=== PATIENT | male | born 1970 | race Caucasian/White ===

== ENCOUNTER 2025-03-31 12:38 | Outpatient (CLI) | payer OTHER, SELFPAY ==
--- NOTE | 2025-03-31 13:00 | MR_ITS ---
[address] [address] Phone:?[phone] Fax:?[phone] Referring Physician Information: Cong Reed M.D. [id number] [id number] Phone:?[phone] Fax:?[phone] Patient:Jose L Griffiths D.O.B:?1970 Sex:?Male Phone:?[phone] [facility] MRN:?[id number] Exam Date:?03/31/2025 EXAM: MRI of the RIGHT SHOULDER without contrast CLINICAL: Right shoulder pain. COMPARISONS: X-rays dated 03/19/2025. TECHNICAL: Multiplanar multisequence MRI of the right shoulder was obtained. SEDATION: None. CONTRAST: None. FINDINGS: Rotator cuff: Supraspinatus/Infraspinatus: There is mild partial interstitial insertional tearing of the junction of the posterior distal supraspinatus and anterior distal infraspinatus tendons as seen on coronal series 5 image 12-13 with mild partial interstitial tearing involving the infraspinatus tendon proximal to the humeral attachment on coronal series 5 image 15-16. Mild tendinosis of the distal infraspinatus tendon. No significant fatty atrophy of the muscles. Teres minor: No tendinosis, tear or atrophy. Subscapularis: There is moderate tendinosis and mild partial interstitial tearing of the distal subscapularis tendon. No significant fatty atrophy of the muscle. Bursae: Subacromial-subdeltoid: No significant bursal fluid. Subcoracoid: No significant bursal fluid. Coracoacromial arch: Acromion morphology: Type II. No os acromiale. Acromiohumeral space: Within normal limits. Coracohumeral space: Within normal limits. Biceps tendon, long head: No tendinosis, tendon tear or displacement. Glenohumeral joint: No significant joint effusion. Articular cartilage: No discrete chondral defects identified as visualized. Capsule: No evidence of capsular thickening or injury. Labrum: Evaluation is limited without intra-articular contrast. Suspect mild fraying/tearing of the superior labrum posterior to the biceps anchor with apparent ill-defined fraying/tearing also seen to involve the inferior labrum. No perilabral cyst identified. Bones: No suspicious marrow signal alteration, fracture or dislocation. Acromioclavicular joint: Moderate changes of arthrosis. No AC joint injury/widening. IMPRESSION: 1. Mild partial interstitial insertional tearing of the junction of the posterior distal supraspinatus and anterior distal infraspinatus tendons with mild partial interstitial tearing also involving the infraspinatus tendon proximal to the humeral attachment. Mild tendinosis of the distal infraspinatus tendon. 2. Moderate tendinosis and mild thin linear partial interstitial tearing of the distal subscapularis tendon. 3. Evaluation of the labrum is limited. Suspect mild fraying/tearing of the superior labrum with apparent ill-defined fraying/tearing involving the inferior labrum as visualized. Consider follow-up with MR arthrography for further evaluation. 4. Moderate AC joint arthrosis. 5. Normal appearance of the long head biceps tendon. No evidence of fracture. JCZ Electronically signed on 04/01/2025 9:01:00 AM by Ellis Tenorio D.O.
== END 2025-03-31 12:39 | disposition home or self-care (01) ==
LOC: MRI 12:40
PROVIDERS: Visit Provider Orthopaedic Surgery Sports Medicine
DX: M25.511 Pain in right shoulder (principal); M75.101 Unspecified rotator cuff tear or rupture of right shoulder, not specified as traumatic; S43.431A Superior glenoid labrum lesion of right shoulder, initial encounter; M19.011 Primary osteoarthritis, right shoulder; M24.811 Other specific joint derangements of right shoulder, not elsewhere classified
CPT/HCPCS: 73221